=== PATIENT | female | born 1975 | race Two or more races ===

== ENCOUNTER 2017-11-07 08:07 | Day surgery (SDC) | payer MEDICAID ==
[~2017-11-07] VITALS: Ht 157.5 cm; Wt 131.5 kg
--- NOTE | ~2017-11-07 | OP ---
PATIENT NAME: JOEL WARNER MEDICAL RECORD: [id number] :73 LOCATION:[facility] ADMISSION DATE: SURGEON: JOSE JOY MD DATE OF OPERATION: 11/07/2017 PREOPERATIVE DIAGNOSES: Headaches and left chronic sphenoid sinusitis, nasal obstruction, and turbinate hypertrophy. POSTOPERATIVE DIAGNOSES: Headaches and left chronic sphenoid sinusitis, nasal obstruction, and turbinate hypertrophy. PROCEDURE: Left sphenoidotomy and bilateral inferior turbinate reduction. SURGEON: Jose Joy MD ANESTHESIA: General orotracheal. BLOOD LOSS: Less than 5 cc. SPECIMENS: Cultures from the left sphenoid sinus. COMPLICATIONS: None. DISPOSITION: Recovery stable. DESCRIPTION OF PROCEDURE: She was brought to the operating room and placed in supine position, sedated and intubated by anesthesia. The table was turned 90 degrees. Head drape was applied. She was positioned for a sinus surgery. She had already been decongested with Afrin preoperatively. Using a headlight and nasal speculum, both sides of the nose were examined. The inferior turbinates and root of the middle turbinate were injected bilaterally with a total of 1.5 cc of 1% lidocaine with 1:100,000 epinephrine and Afrin pledgets were placed in each side of the nose. After time for decongestion, all the Afrin pledgets were removed from the nose. The right side of the nose was examined first. The inferior turbinate, middle turbinate, and middle meatus were normal. The superior turbinate was normal and the sphenoid ostia was clearly easily visible and opened, patent with no drainage. The septum, floor of the nose, and nasopharynx were all normal with no lesions, masses, or inflammation. The left side was then examined. Again, the inferior turbinate was normal. Middle turbinate was normal. Middle meatus was normal. There was some deviation to the left, making a little bit more difficult to visualize the superior turbinate and the sphenoid ostia, but the nasopharynx was normal. The middle turbinate was gently lateralized with the [place] and the superior turbinate was visualized. Just a small crevice where the sphenoid ostia was visible, there was really no drainage there. A 7-Dutch suction was inserted into the ostia easily. It was fairly clean or maybe a little bit of drainage there, but not much. There was nothing obvious to suction out. Culture swabs were used at the opening of the sphenoid ostia. The sinus was irrigated with saline and looked good. A [place] punch was used to open it up slightly. The bone was fairly thick medially and inferiorly. Then, the inferior turbinates were addressed and both medialized. A [place] was used to take down the inferior redundant portion and suction cautery used to stop any bleeding and then both outfractured with a [place] elevator. The nasopharynx was suctioned. The sphenoid ostia was again examined, everything was clean with no significant bleeding. She was awakened, extubated, and transported to recovery in good condition. No complications. 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
--- NOTE | ~2017-11-07 | HP ---
PATIENT: JOEL CLAROS MEDICAL RECORD: [id number] ACCOUNT: [id number] [facility] : 73 ADMISSION DATE: 11/07/17 HISTORY AND PHYSICAL EXAMINATION HISTORY OF PRESENT ILLNESS: Ms. Claros is 42 years old. She has had problems with headaches and chronic sphenoid sinusitis, refractory to medical management and nasal obstruction. She is being admitted for left sphenoidotomy, bilateral inferior turbinate reduction. PAST MEDICAL HISTORY: Includes reflux. PAST SURGICAL HISTORY: Includes tubal ligation in 1999. CURRENT MEDICATIONS: Soma, Zoloft, Ativan, omeprazole, Abilify, tramadol, , and Claritin. ALLERGIES: CODEINE. PHYSICAL EXAMINATION: GENERAL: Healthy-appearing, developmentally normal. FACE: Normal, symmetric, no lesions. EYES: Sclerae and conjunctivae are normal. EARS: Canals and TMs are normal. NOSE: No mass, polyps, or drainage. ORAL CAVITY AND OROPHARYNX: Tongue is midline. Pharynx is normal. NECK: No masses, adenopathy. CHEST: Clear. CARDIOVASCULAR: Regular rate and rhythm, no murmur. EXTREMITIES: Normal. DIAGNOSTIC DATA: CT scan shows fluid and bubbles in the left sphenoid sinus. IMPRESSION: Headaches, chronic sphenoid sinusitis, nasal obstruction, and turbinate hypertrophy. PLAN: Left sphenoidotomy and bilateral inferior turbinate reduction. TRANSINT:[id number] Voice Confirmation ID: [id number] DOCUMENT ID: [id number] CECILE JOY MD at 1356 CC: [id number] DICTATION DATE: 11/05/17 135 [facility] ENGINEER: 11/05/17 1420 [facility] 11/07/[address] [address]
[~2017-11-07 08:07] MED LIST: LYRICA75 MG PO; NEURONTIN 300300 MG; OMEPRAZOLE CAP 20M; SOMA350 MG PO; VOLTAREN100 MG PO; [UNRECOGNIZED DRUG - OTHER]
[2017-11-07 08:52] VITALS: BP 130/69; Ht 157.5 cm; Wt 131.5 kg
[2017-11-07 08:53] LABS: HEMATOCRIT 38.3 % (36.0-48.0); HEMOGLOBIN 12.3 g/dL (12-16); MCHC 32.1 g/dL (31.0-37.0); MCV 99.7 fL (80.0-100.0); MEAN PLATELET VOLUME 10.4 fL (7.4-10.4); RBC 3.84 10x6/uL (4.00-5.40); RDW 15.1 % (11.5-14.5); WBC 7.4 10x3/uL (4.8-10.8)
[2017-11-07 09:00] LABS: CALC OSMOLALITY 281 mosm/kg (275-300); CALCIUM 8.2 mg/dL (8.5-10.1); CARBON DIOXIDE 28.5 mmol/L (21.0-32.0); CHLORIDE - SERUM 107 mmol/L (98-107); CREATININE - SERUM 0.7 mg/dL (0.6-1.3); GLUCOSE 106 mg/dL (74-106); SODIUM 142 mmol/L (136-145); UREA NITROGEN 10 mg/dL (7-18); eGFR NON AFRICAN AMERICAN > 90 mL/min (90-120)
[2017-11-14 15:28] LABS: AEROBE ID Final report (()); RESULT 1 Streptococcus mitis (())
== END 2017-11-07 13:58 | disposition home or self-care (01) ==
LOC: D.OPS 08:07 → D.PAN 09:00 → D.OPS 13:58
PROVIDERS: Anesthesiology; Otolaryngology
DX: J32.3 Chronic sphenoidal sinusitis (principal); J34.89 Other specified disorders of nose and nasal sinuses; J34.3 Hypertrophy of nasal turbinates; K21.9 Gastro-esophageal reflux disease without esophagitis; Z79.891 Long term (current) use of opiate analgesic; Z79.899 Other long term (current) drug therapy; Z01.812 Encounter for preprocedural laboratory examination